=== PATIENT | male | born 1960 | race Caucasian/White ===

== ENCOUNTER 2016-04-12 14:45 | Emergency (ER) | payer OTHER ==
[2016-04-12 15:06] VITALS: BP 158/93
--- NOTE | 2016-04-12 16:07 | UC ---
Headache HPI - HPI Summary HPI Summary: The patient comes in today for: 1. Headache: Onset: Yesterday. Palliative/provocative: Nothing makes the headache better or worse. Quality: Dull ache. Region: Occiput and behind both eyes. Severity: 3/10 Time: Constant. Associated symptoms: Event: He was on a roof yesterday and slipped. He fell backward on the roof as his feet went out in front of him. He hit the back of his head. He did not have pain immediately. He developed the headache this morning. He states that the headache is in the back of his head and behind his eyes. Home Rx: Nothing. Other symptoms: No nausea, no vision changes, no weakness or numbness. No LOC. He states that today, he found it hard to concentrate and at times he was not able to get words for talking that normally, he would not have a problem with in the past. 2. Neck pain: Onset: Yesterday. Palliative/provocative: Turning the head, stopping the car. Quality: Dull ache Region: back of the neck and along the right and left sides. Severity: 3/10 Time: Constant. Associated symptoms: Arms: No weakness or numbness of the arms. 3. Dizziness (Imbalance, "I list to one side," "I fell like the floor is tilted and my body wants to follow it.") * * - History Of Current Complaint Chief Complaint: UCTrauma Stated Complaint: BACK INJURY Time Seen by Provider: 04/12/16 15:13 Hx Obtained From: Patient - Allergies/Home Medications Allergies/Adverse Reactions: Allergies Allergy/AdvReac Type Severity Reaction Status Date / Time Penicillins Allergy Unknown Unknown Verified 04/12/16 15:07 Reaction Details Home Medications: Home Medications Aspirin EC Low Dose* [Ecotrin EC Low Dose*] 1 tab DAILY 04/12/16 [History Confirmed 04/12/16] Atorvastatin* [Lipitor 20 MG*] 1 tab DAILY 04/12/16 [History Confirmed 04/12/16] Canagliflozin (NF) [Invokana (NF)] 1 tab DAILY 04/12/16 [History Confirmed 04/12] Insulin GLARGINE(*) [Lantus(*)] 45 units BID 04/12/16 [History Confirmed ] Tadalafil [Cialis] 04/12/16 [History] metFORMIN* [Glucophage*] 1 tab BID 04/12/16 [History Confirmed 04/12/16] PMH/Surg Hx/FS Hx/Imm Hx Previously Healthy: No - ED Endocrine History Of: Reports: Diabetes - TYPE II, Dyslipidemia Denies: Thyroid Disease, Hyperthyroidism, Hypothyroidism Cardiovascular History Of: Denies: Cardiac Disorders, Hypertension, Pacemaker/ICD, Myocardial Infarction , Congestive Heart Failure, Atrial Fibrillation, Deep Vein Thrombosis, Bleeding Disorders Respiratory History Of: Denies: COPD, Asthma, Bronchitis, Pneumonia, Pulmonary Embolism GI/ History Of: Denies: Gastroesophageal Reflux, Ulcer, Gastrointestinal Bleed, Gall Bladder Disease, Kidney Stones, Diverticulitis, Renal Disease, Urosepsis Neurological History Of: Denies: TIA, CVA, Dementia, Seizures, Migraine Psychological History Of: Denies: Anxiety, Depression, Bipolar Disorder, Schizophrenia, Post Traumatic Stress Disorder Cancer History Of: Denies: Lung Cancer, Colorectal Cancer, Breast Cancer, Prostate Cancer, Cervical Cancer Other History Of: Negative For: HIV, Hepatitis B, Hepatitis C, Anticoagulant Therapy - Surgical History Surgical History: None - Family History Known Family History: Positive: Cardiac Disease, Hypertension - Social History Occupation: Employed Full-time Alcohol Use: Occasionally Substance Use Type: None Smoking Status (MU): Never Smoked Tobacco Review of Systems Constitutional: Negative Skin: Negative Eyes: Negative ENT: Negative Respiratory: Negative Cardiovascular: Negative Gastrointestinal: Negative Genitourinary: Negative All Other Systems Reviewed And Are Negative: Yes Physical Exam Triage Information Reviewed: Yes Appearance: Well-Appearing, No Pain Distress, Well-Nourished Vital Signs: Initial Vital Signs Temp 97.7 F 04/12/16 15:03 Pulse 91 04/12/16 15:03 Resp 18 04/12/16 15:03 BP 158/93 04/12/16 15:03 Pulse Ox 97 04/12/16 15:03 Vital Signs Reviewed: Yes Eyes: Positive: Conjunctiva Clear. Negative: Discharge ENT: Positive: Hearing grossly normal. Negative: Pharyngeal erythema, Nasal congestion, Nasal drainage, TM bulging, TM dull, TM red, Tonsillar swelling, Tonsillar exudate Dental: Negative: Gross Decay/Caries @, Dental Fracture @ Neck: Positive: Supple, Nontender, No Lymphadenopathy, Other: - He has no tenderness to palpation of the spinous processes. Minimal pain to palpation of the right and left paraspinal cervical musculature. He has good range of motion for flexion, extension, bilateral flexion and rotation.. Negative: Nuchal Rigidity Respiratory: Positive: Chest non-tender, Lungs clear, No respiratory distress, No accessory muscle use. Negative: Crackles, Rhonchi, Wheezing Cardiovascular: Positive: RRR, No Murmur Abdomen Description: Positive: Nontender, No Organomegaly, Soft. Negative: Distended, Guarding Musculoskeletal: Positive: Strength Intact, ROM Intact, No Edema Neurological: Positive: Alert, Muscle Tone Normal, Other: - Neurologic exam: Inspection: no fasciculations. Cranial nerves (II-XII): intact Muscular tone: Reflexes: Biceps: 2+/2 x 2 Triceps: 2+/2 x 2 Brachioradialis: 2+/2 x 2 Patellar: 2+/2 x 2 Achilles: not done. Coordination: Upper extremity : Alternating patting of thighs, alternating fingertips to thumb, index finger tip to nose--all normal. Lower extremity: Heel along babin--normal. Strength: Upper extremity: appropriate for age and symmetrical Lower extremity: appropriate for age and symmetrical Gait: Regular: Normal. Heel to toe: Normal. Rhomberg: Normal. Sensation: No complaint of numbness. Psychological: Positive: Age Appropriate Behavior, Consolable Skin: Negative: rashes, breakdown Diagnostics - Laboratory Diagnostic Studies Completed/Ordered: IMPRESSION: MILD INVOLUTIONAL CHANGES. NO ACUTE FINDINGS. Headache Course/Dx - Course Course Of Treatment: Patient was told of the unremarkable CT scan (involutional changes). All questions answered. - Differential Dx/Diagnosis Provider Diagnoses: Head injury with concussion. Neck strain Discharge - Discharge Plan Condition: Stable Disposition: HOME Patient Education Materials: Concussion (ED), Head Injury (ED) Referrals: Jarad Conley DO [Primary Care Provider] - 1 Week (Please see your primary care provider in a week to see how well you are doing. If you get worse, please be seen sooner in the ER or through us.)
--- NOTE | 2016-04-12 16:48 | RAD ---
INDICATION: Intracranial injury COMPARISON: None TECHNIQUE: Noncontrast axial source images were acquired from the skull base to the vertex. FINDINGS: Ventricles/sulci: There is mild age-related cortical atrophy with compensatory dilatation of the CSF spaces. Brain parenchyma: There is no focal parenchymal finding, evidence of intracranial mass, or intracranial mass effect. Intracranial hemorrhage:None. Extra-axial spaces: There are no abnormal extra axial fluid collections or evidence of extra-axial mass. Calvarium: There is no calvarial fracture or other calvarial abnormality. Scalp: There is no evidence of scalp or extracalvarial soft tissue abnormality. Paranasal sinuses/mastoid: The paranasal sinuses and mastoid air cells are clear. Other: None. IMPRESSION: MILD INVOLUTIONAL CHANGES. NO ACUTE FINDINGS.
== END 2016-04-12 17:25 | disposition home or self-care (01) ==
LOC: UCEAST 14:45
DX: S06.0X0A Concussion without loss of consciousness, initial encounter (principal); S16.1XXA Strain of muscle, fascia and tendon at neck level, initial encounter; W13.2XXA Fall from, out of or through roof, initial encounter; Y93.9 Activity, unspecified; Y92.9 Unspecified place or not applicable; Z88.0 Allergy status to penicillin; E11.9 Type 2 diabetes mellitus without complications; Z79.4 Long term (current) use of insulin; Z79.84 Long term (current) use of oral hypoglycemic drugs; Z79.82 Long term (current) use of aspirin
CPT/HCPCS: 70450; 99213; G0463

== ENCOUNTER 2018-05-11 19:04 | Emergency (ER) | payer BC ==
[2018-05-11 19:28] VITALS: BP 138/91
--- NOTE | 2018-05-11 19:51 | UC ---
Laceration HPI - HPI Summary HPI Summary: Using razor to cut board. Cut off tip of the right thumb. Right handed. - History Of Current Complaint Chief Complaint: UCUpperExtremity Stated Complaint: RIGHT THUMB INJURY Time Seen by Provider: 05/11/18 19:45 Hx Obtained From: Patient Laceration Location: Finger - right thumb Mechanism Of Injury: Sharp Trauma Severity: Mild Pain Intensity: 1 Aggravating Factors: Movement Related History: Dominant Hand Right - Allergies/Home Medications Allergies/Adverse Reactions: Allergies Allergy/AdvReac Type Severity Reaction Status Date / Time Penicillins Allergy Unknown Verified 05/11/18 19:23 Reaction Details Home Medications: Home Medications Insulin ASPART (NF) [Novolog (NF)] 18 - 20 unit QAM 05/11/18 [History Confirmed 05/11/18] PMH/Surg Hx/FS Hx/Imm Hx Endocrine History: Diabetes Other History Of: Negative For: HIV, Hepatitis B, Hepatitis C, Anticoagulant Therapy - Surgical History Surgical History: Yes Surgery Procedure, Year, and Place: TONSILS - Family History Known Family History: Positive: Cardiac Disease, Hypertension - Social History Occupation: Employed Full-time Lives: With Family Alcohol Use: Weekly Alcohol Amount: 4-5 DRINKS/WEEK Substance Use Type: None Smoking Status (MU): Never Smoked Tobacco - Immunization History Most Recent Tetanus Shot: UNKNOWN Review of Systems All Other Systems Reviewed And Are Negative: Yes Is Patient Immunocompromised?: Yes - Diabetes Physical Exam Triage Information Reviewed: Yes Appearance: Well-Appearing, No Pain Distress, Well-Nourished Vital Signs: Initial Vital Signs Temp 97.2 F 05/11/18 19:25 Pulse 90 05/11/18 19:25 Resp 16 05/11/18 19:25 BP 138/91 05/11/18 19:25 Pulse Ox 97 05/11/18 19:25 Vital Signs Reviewed: Yes Eyes: Positive: Conjunctiva Clear Neck exam: Normal Respiratory Exam: Normal Cardiovascular Exam: Normal Musculoskeletal Exam: Normal Neurological Exam: Normal Psychological Exam: Normal Skin: Positive: Other - laceration Laceration Repair - Laceration Repair 1 : No Repair Necessary Laceration Course/Dx - Differential Dx - Laceration/Wound Differental Diagnoses: Avulsion, Dehiscence, Laceration - Diagnosis Provider Diagnosis: Laceration of right thumb Discharge - Sign-Out/Discharge Documenting (check all that apply): Patient Departure All imaging exams completed and their final reports reviewed: No Studies - Discharge Plan Condition: Stable Disposition: HOME Patient Education Materials: Finger Laceration (ED) Referrals: Jarad Conley DO [Primary Care Provider] - Additional Instructions: When the gel foam comes off use antibiotic ointment twice a day and keep it covered with a band aid. - Billing Disposition and Condition Condition: STABLE Disposition: Home
[2018-05-11] MEDS ORDERED: Gelfoam 12-7 ADSORBABL SPONGE* 1 EA SPONGE TOPICAL ONE (19:52)
[2018-05-11] MEDS ORDERED: Tetan/Diph/Pertus SYR(Tdap)* 0.5 ML SYR(BOOSTRIX) use SYR IM ONE (19:53)
== END 2018-05-11 20:20 | disposition home or self-care (01) ==
LOC: UCCORT 19:04
DX: S61.011A Laceration without foreign body of right thumb without damage to nail, initial encounter (principal); E11.9 Type 2 diabetes mellitus without complications; Z88.0 Allergy status to penicillin; Z79.4 Long term (current) use of insulin; W26.8XXA Contact with other sharp object(s), not elsewhere classified, initial encounter; Y92.9 Unspecified place or not applicable
CPT/HCPCS: 90471; 90715; 99212; A9270-GY; G0463